=== PATIENT | male | born 1975 | race Caucasian/White ===

== ENCOUNTER → 2022-08-01 09:15 | Outpatient (BNVA) | payer MEDICAID, SELFPAY | PROVIDERS: Visit Provider Family Medicine | DX: G89.29 Other chronic pain (principal); M25.559 Pain in unspecified hip; R79.89 Other specified abnormal findings of blood chemistry; M16.0 Bilateral primary osteoarthritis of hip | CPT/HCPCS: 80053; 80061; 84402; 84439; 84443; 85025 ==

== ENCOUNTER → 2023-01-09 16:11 | Outpatient (BNVA) | payer MEDICAID, SELFPAY | PROVIDERS: PCP Family Medicine; Visit Provider Family Medicine | DX: Z86.39 Personal history of other endocrine, nutritional and metabolic disease (principal) | CPT/HCPCS: 84402 ==

== ENCOUNTER → 2023-10-04 16:00 | Outpatient (BNVA) | payer SELFPAY | PROVIDERS: PCP Family Medicine; Visit Provider Nurse Practitioner Family | DX: I16.9 Hypertensive crisis, unspecified (principal); I10 Essential (primary) hypertension | CPT/HCPCS: 80053 ==

== ENCOUNTER → 2024-03-01 09:11 | Outpatient (BNVA) | payer MEDICAID, SELFPAY | PROVIDERS: PCP Family Medicine; Visit Provider Nurse Practitioner Family | DX: I10 Essential (primary) hypertension (principal); R79.89 Other specified abnormal findings of blood chemistry | CPT/HCPCS: 80053; 80061; 84403 ==

== ENCOUNTER → 2024-11-05 08:27 | Outpatient (BNVA) | payer MEDICAID, SELFPAY | PROVIDERS: PCP Nurse Practitioner Family; Visit Provider Nurse Practitioner Family | DX: I10 Essential (primary) hypertension (principal) | CPT/HCPCS: 80053; 80061; 84403; 85025 ==